=== PATIENT | male | born 1945 | race Caucasian/White ===

== ENCOUNTER 2017-03-07 12:35 | Outpatient (RCR) ==
[2015-01-29 13:57] VITALS: BMI 26.6
[2017-03-07 13:41] VITALS: TEMP 98.2
[2017-03-11 13:33] VITALS: BP 136/52
== END 2017-03-12 ==
LOC: CAR.REHAB 12:35
DX: Z95.5 Presence of coronary angioplasty implant and graft (principal)
CPT/HCPCS: 93798

== ENCOUNTER 2017-04-13 07:12 | Outpatient (RCR) ==
[2015-01-29 13:57] VITALS: BMI 26.6
[2017-05-09 13:30] VITALS: BP 136/58
== END 2017-05-12 ==
LOC: CAR.REHAB 07:12
DX: Z95.5 Presence of coronary angioplasty implant and graft (principal)
CPT/HCPCS: 93798

== ENCOUNTER 2017-05-13 06:53 | Outpatient (RCR) ==
[2015-01-29 13:57] VITALS: BMI 26.6
[2017-06-10 13:23] VITALS: BP 146/58
== END 2017-06-12 ==
LOC: CAR.REHAB 06:53
PROVIDERS: ATTEND Internal Medicine
DX: Z95.5 Presence of coronary angioplasty implant and graft (principal)
CPT/HCPCS: 93798

== ENCOUNTER 2017-06-14 08:09 | Outpatient (RCR) | payer OTHER ==
[2015-01-29 13:57] VITALS: BMI 26.6
[2017-07-13 13:23] VITALS: BP 136/54
== END 2017-07-13 ==
LOC: CAR.REHAB 08:09
PROVIDERS: ATTEND Internal Medicine
DX: Z95.5 Presence of coronary angioplasty implant and graft (principal)
CPT/HCPCS: 93798